=== PATIENT | female | born 1955 | race Hispanic/Latino ===

== ENCOUNTER 2017-01-21 03:05 | Emergency (ER) | payer OTHER ==
[2017-01-21 03:20] VITALS: BP 139/85; PULSE 74; RESP 18; TEMP 97.8; O2SAT 97
--- NOTE | 2017-01-21 03:34 | ED PDOC ---
HPI: Female Pain Time Seen by Provider: 01/21/17 03:26 Chief Complaint (Nursing): Female Genitourinary Chief Complaint (Provider): uti History Per: Patient Additional Complaint(s): 61yo F in ED for eval of early stages of a UTI-states that she is having burning , freq, urgency and suprapubic pain. PT admits to hx of of UTI and feels like this is a UTI. denies fever chills nausea vomiting. Past Medical History Reviewed: Historical Data, Nursing Documentation, Vital Signs Vital Signs: Last Vital Signs Temp 97.8 F 01/21/17 03:17 Pulse 74 01/21/17 03:17 Resp 18 01/21/17 03:17 BP 139/85 01/21/17 03:17 Pulse Ox 97 01/21/17 03:17 - Medical History PMH: No Chronic Diseases - Family History Family History: States: No Known Family Hx - Home Medications Home Medications: Ambulatory Orders Medication Instructions Recorded Nitrofurantoin Macrocrystals 100 mg PO BID #14 cap 01/21/17 [Macrobid] - Allergies Allergies/Adverse Reactions: Allergies Allergy/AdvReac Type Severity Reaction Status Date / Time No Known Allergies Allergy Verified 01/21/17 03:17 Review of Systems ROS Statement: Except As Marked, All Systems Reviewed And Found Negative Gastrointestinal: Positive for: Abdominal Pain Genitourinary Female: Positive for: Dysuria, Frequency Physical Exam - Reviewed Nursing Documentation Reviewed: Yes Vital Signs Reviewed: Yes - Physical Exam Appears: Positive for: Well, Non-toxic, No Acute Distress Head Exam: Positive for: ATRAUMATIC, NORMAL INSPECTION, NORMOCEPHALIC Skin: Positive for: Normal Color, Warm, DRY Cardiovascular/Chest: Positive for: Regular Rate, Rhythm Respiratory: Positive for: CNT, Normal Breath Sounds Gastrointestinal/Abdominal: Positive for: Bowel Sounds, Soft, Tenderness ( suprapubic ) Back: Positive for: Normal Inspection. Negative for: L CVA Tenderness, R CVA Tenderness Extremity: Positive for: Normal ROM Neurologic/Psych: Positive for: Alert, Oriented - ECG O2 Sat by Pulse Oximetry: 97 - Progress ED Course And Treament: pt given torodol IM and macrobid PO in ED. though Udip shows no (+) luek/nitrates, will treat for UTI due to presenting symptoms. Rx for macrobid. Medical Decision Making Medical Decision Making: dx: symptomatic UTI macrobid adn given torodol IM in ED Disposition - Clinical Impression Clinical Impression: Urinary tract infection - Patient ED Disposition Is Patient to be Admitted: No Counseled Patient/Family Regarding: Studies Performed, Diagnosis, Need For Followup, Rx Given - Disposition Disposition: Routine/Home Disposition Time: 03:39 Condition: STABLE Prescriptions: Nitrofurantoin Macrocrystals [Macrobid] 100 mg PO BID #14 cap Instructions: Urinary Tract Infection in Women (DC)
== END 2017-01-21 03:40 | disposition home or self-care (01) ==
LOC: H.ER 03:05
DX: N39.0 Urinary tract infection, site not specified (principal)